=== PATIENT | female | born 1980 | race Asian ===

== ENCOUNTER 2021-01-01 09:15 | Inpatient (IN) | payer BC, SELFPAY ==
[~2021-01-01] VITALS: Ht 157.5 cm; Wt 66.2 kg
[2021-01-01] MEDS ORDERED: CLINDAMYCIN 900 mg/50mL D5W 50 ML IV ONE (09:45)
[2021-01-01] MEDS ORDERED: LR 1,000 ML IV ONE (09:45)
[2021-01-01 10:07] LABS: BILIRUBIN,URINE NEGATIVE (NEGATIVE); BLOOD, URINE NEGATIVE (NEGATIVE); CLARITY/URINE CLEAR (CLEAR); COLOR,URINE YELLOW (YELLOW); GLUCOSE,URINE NEGATIVE (NEGATIVE); KETONES,URINE NEGATIVE (NEGATIVE); LEUKOCYTE ESTERASE ,URINE 1+ (NEGATIVE); NITRITE, URINE NEGATIVE (NEGATIVE); PROTEIN URINE NEGATIVE (NEGATIVE); UROBILINOGEN,URINE 0.2 (0.2-1.0)
[2021-01-01 10:12] LABS: BASOPHILS % (AUTO) 0.3 % (0.0-2.0); EOSINOPHILS % (AUTO) 0.3 % (0.0-4.0); HEMATOCRIT 34.2 % (36-48); HEMOGLOBIN 11.4 g/dL (12.0-16.0); LYMPHOCYTES # (AUTO) 1.4 K/uL (1.0-5.5); LYMPHOCYTES % (AUTO) 18.2 % (20.5-51.5); MEAN CORPUSCULAR HEMOGLOBIN 30 pg (27-31); MEAN CORPUSCULAR HGB CONC 33 % (32-36); MEAN CORPUSCULAR VOLUME 89 fL (79.0-98.0); MONOCYTES # (AUTO) 0.6 K/uL (0.0-1.0); MONOCYTES % (AUTO) 8.4 % (1.7-9.3); NEUTROPHILS # (AUTO) 5.4 K/uL (1.8-7.7); NEUTROPHILS % (AUTO) 72.8 % (40.0-70.0); PLATELET COUNT (AUTO) 204 K/uL (130-430); RED BLOOD CELL COUNT(AUTO) 3.85 MIL/uL (4.2-6.2); RED CELL DISTRIBUTION WIDTH 14.6 % (9.0-15.0); WHITE BLOOD COUNT (AUTO) 7.5 K/uL (4.8-10.8)
[2021-01-01 10:33] LABS: BACTERIA,URINE FEW /HPF (None Seen); RBC,URINE 0-3 /HPF (0-3)
[2021-01-01] MEDS ORDERED: NS IRRIG SOLN 1000 ML IR ONE (11:10)
[2021-01-01] MEDS ORDERED: CLINDAMYCIN PHOSPHATE 900 mg/50mL D5W IV ONE (11:10)
[2021-01-01] MEDS ORDERED: TRIAMCINOLONE ACETONIDE 40 MG/ML IM ONE (11:10)
[2021-01-01] MEDS ORDERED: LR 1,000 ML IV.SOLN IV ONE (11:10)
[2021-01-01] MEDS ORDERED: MORPHINE 2 MG/ML INJ. SYRINGE IVP ONE (11:10)
[2021-01-01] MEDS ORDERED: METOCLOPRAMIDE HCL 10 MG/2 ML VIAL IVP PRN (11:45)
[2021-01-01] MEDS ORDERED: MEPERIDINE HCL/PF 25 MG/ML DISP.SYRIN IVP PRN (11:45)
[2021-01-01] MEDS ORDERED: DIPHENHYDRAMINE INJ 50 MG/ML VIAL IM PRN (11:45)
[2021-01-01] MEDS ORDERED: ONDANSETRON HCL 4 MG/2 ML VIAL IVP PRN ×2 (11:45)
[2021-01-01] MEDS ORDERED: KETOROLAC TROMETHAMINE 30 MG VIAL IVP PRN (11:45)
[2021-01-01] MEDS ORDERED: MORPHINE SULFATE 10MG/10ML PF AMP SP SCH (11:45)
[2021-01-01] MEDS ORDERED: KETOROLAC TROMETHAMINE 60 MG/2 ML VIAL IM PRN (11:45)
[2021-01-01] MEDS ORDERED: HYDROmorphone 1 MG/ML INJ. CARTRIDGE IVP PRN ×2 (11:45)
[2021-01-01] MEDS ORDERED: LR 1,000 ML IV SCH ×2 (11:45→12:15)
[2021-01-01] MEDS ORDERED: BISACODYL 10 MG/SUPPOSITORY RC PRN (12:15)
[2021-01-01] MEDS ORDERED: ANUSOL 1 EA SUPP.RECT (PREPARATION H) RC PRN (12:15)
[2021-01-01] MEDS ORDERED: TEMAZEPAM 15 MG CAPSULE PO PRN (12:15)
[2021-01-01] MEDS ORDERED: HYDROcodone/ACETAMIN 5-325 MG TAB (NORCO/ VICODIN) PO PRN (12:15)
[2021-01-01] MEDS ORDERED: SENNOSIDES/DOCUSATE SODIUM 1 TAB TABLET(SENOKOT-S) PO PRN (12:15)
[2021-01-01] MEDS ORDERED: OXYCODONE/ACETAMINOPHEN 5-325 TABLET PO PRN ×2 (12:15)
[2021-01-01] MEDS ORDERED: RHO(D) IMMUNE GLOBULIN/MALTOSE 1500 UNITS/1.3 ML (WINHRO) IM PRN (12:15)
[2021-01-01] MEDS ORDERED: LANOLIN 7 GM OINT. TP PRN (12:15)
[2021-01-01] MEDS ORDERED: OXYTOCIN/0.9 % SODIUM CHLORIDE 1,000 ML IV ONE (12:15)
[2021-01-01] MEDS ORDERED: DIPH-TET-PERTUS Vaccine 0.5 ML VIAL (ADACEL) I.M. PRN (12:15)
[2021-01-01] MEDS ORDERED: MEASLES,MUMPS&RUBELLA VACC/PF 12500 UNIT/0.5 ML VIAL SUBQ PRN (12:15)
[2021-01-01 12:22] VITALS: BP_SYST 94
[2021-01-01] MEDS ORDERED: OXYTOCIN 10 UNIT/ML VIAL ONE (13:08)
[2021-01-02] MEDS: IBUPROFEN 600 MG TABLET PO SCH ×4 (06:03→23:08)
[2021-01-02 07:08] LABS: BASOPHILS % (AUTO) 0.1 % (0.0-2.0); HEMATOCRIT 33.7 % (36-48); HEMOGLOBIN 11.2 g/dL (12.0-16.0); LYMPHOCYTES # (AUTO) 0.9 K/uL (1.0-5.5); LYMPHOCYTES % (AUTO) 7.9 % (20.5-51.5); MEAN CORPUSCULAR HEMOGLOBIN 30 pg (27-31); MEAN CORPUSCULAR HGB CONC 33 % (32-36); MEAN CORPUSCULAR VOLUME 90 fL (79.0-98.0); MONOCYTES # (AUTO) 0.7 K/uL (0.0-1.0); MONOCYTES % (AUTO) 6.6 % (1.7-9.3); NEUTROPHILS # (AUTO) 9.3 K/uL (1.8-7.7); NEUTROPHILS % (AUTO) 85.4 % (40.0-70.0); PLATELET COUNT (AUTO) 227 K/uL (130-430); RED BLOOD CELL COUNT(AUTO) 3.76 MIL/uL (4.2-6.2); RED CELL DISTRIBUTION WIDTH 14.7 % (9.0-15.0); WHITE BLOOD COUNT (AUTO) 10.9 K/uL (4.8-10.8)
[2021-01-02] MEDS: DOCUSATE SODIUM 100 MG CAPSULE PO PRN ×2 (09:31→21:03)
[2021-01-02] MEDS: SIMETHICONE 80 MG TAB.CHEW PO PRN ×3 (09:31→18:50)
[2021-01-03] MEDS: IBUPROFEN 600 MG TABLET PO SCH ×2 (05:54→11:49)
[2021-01-03] MEDS: DOCUSATE SODIUM 100 MG CAPSULE PO PRN (08:40)
[2021-01-03] MEDS: SIMETHICONE 80 MG TAB.CHEW PO PRN ×2 (08:40→13:58)
== END 2021-01-03 15:13 | disposition home or self-care (01) | DRG 787 ==
LOC: SPU 09:15
PROVIDERS: ADMIT Obstetrics & Gynecology; ATTEND Obstetrics & Gynecology
PROC: 10D00Z1 Extraction of Products of Conception, Low, Open Approach (ICD-10-PCS; principal; 2021-01-01 10:00)
DX: O34.211 Maternal care for low transverse scar from previous cesarean delivery (principal); O41.03X0 Oligohydramnios, third trimester, not applicable or unspecified; Z20.822 Contact with and (suspected) exposure to COVID-19; O69.81X0 Labor and delivery complicated by cord around neck, without compression, not applicable or unspecified; O36.8130 Decreased fetal movements, third trimester, not applicable or unspecified; Z37.0 Single live birth; Z3A.38 38 weeks gestation of pregnancy
CPT/HCPCS: 36415; 81000; 85025; 86592; 86780; 86886; 86900; 86901; 87086; J2270; J2405; J2590; J3490; J7120

== ENCOUNTER 2022-03-09 21:36 | Emergency (ER) | payer BC, MEDICAID ==
[~2022-03-09] VITALS: Ht 167.6 cm; Wt 59.0 kg
[2022-03-09 21:55] VITALS: BP_SYST 81
[2022-03-09] MEDS ORDERED: NACL 0.9% 1,000 ML IV ONE (22:00)
[2022-03-09 22:40] LABS: BASOPHILS # (AUTO) 0.1 K/uL (0.0-0.2); BASOPHILS % (AUTO) 1.3 % (0.0-2.0); EOSINOPHILS % (AUTO) 0.2 % (0.0-4.0); HEMATOCRIT 33.2 % (36-48); HEMOGLOBIN 11.3 g/dL (12.0-16.0); LYMPHOCYTES # (AUTO) 1.2 K/uL (1.0-5.5); LYMPHOCYTES % (AUTO) 12.8 % (20.5-51.5); MEAN CORPUSCULAR HEMOGLOBIN 31 pg (27-31); MEAN CORPUSCULAR HGB CONC 34 % (32-36); MEAN CORPUSCULAR VOLUME 91 fL (79.0-98.0); MONOCYTES # (AUTO) 0.6 K/uL (0.0-1.0); MONOCYTES % (AUTO) 5.9 % (1.7-9.3); NEUTROPHILS # (AUTO) 7.7 K/uL (1.8-7.7); NEUTROPHILS % (AUTO) 79.8 % (40.0-70.0); PLATELET COUNT (AUTO) 242 K/uL (130-430); RED BLOOD CELL COUNT(AUTO) 3.67 MIL/uL (4.2-6.2); RED CELL DISTRIBUTION WIDTH 12.9 % (9.0-15.0); WHITE BLOOD COUNT (AUTO) 9.6 K/uL (4.8-10.8)
[2022-03-09 23:13] LABS: ANION GAP 11 (5-15); CALCIUM 8.2 mg/dL (8.4-11.0); CHLORIDE 102 mmol/L (98-107); CREATININE 0.79 mg/dL (0.55-1.30); GLUCOSE 166 mg/dL (70-99); SODIUM SERUM 136 mmol/L (136-145); UREA NITROGEN, BLOOD 15 mg/dL (8-21)
[2022-03-09 23:19] LABS: ALANINE AMINOTRANSFERASE 15 U/L (12-78); ALBUMIN 2.7 g/dL (3.4-4.8); ASPARTATE AMINOTRANSFERASE 9 U/L (10-37); TOTAL BILIRUBIN 0.1 mg/dL (0.0-1.0)
[2022-03-09 23:25] LABS: GFR AFRICAN AMERICAN 103 mL/min (>90)
[2022-03-09] MEDS ORDERED: IBUPROFEN 800 MG TABLET PO ONE (23:30)
[2022-03-09] MEDS ORDERED: ACETAMINOPHEN 500 MG TABLET PO ONE (23:30)
[2022-03-09] MEDS ORDERED: IBUP-1970 PO (23:41)
[2022-03-10 00:04] VITALS: BP_SYST 90
== END 2022-03-10 00:05 | disposition home or self-care (01) ==
LOC: SED 21:36
DX: O03.9 Complete or unspecified spontaneous abortion without complication (principal); N93.9 Abnormal uterine and vaginal bleeding, unspecified; R42 Dizziness and giddiness; Z88.0 Allergy status to penicillin; Z79.899 Other long term (current) drug therapy
CPT/HCPCS: 99284; 96360; 80053; 84703; 85025; 86900; 86901; 84484; 36415; 93005; J7030